=== PATIENT | female | born 1940 | race Caucasian/White ===

== ENCOUNTER 2020-05-08 09:38 | Outpatient (REF) | payer MEDICARE, MEDICAID, SELFPAY ==
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
--- NOTE | 2020-05-09 12:20 | MHC.AU.P13 ---
Hearing Aid Evaluation- Binaural Date of Visit: 05/08/20 Automobile Body Repair Supervisor Used: Not Applicable Description of Hearing: Right ear - Moderate dropping to profound sensorineural hearing loss with 76% speech discrimination. Left ear - Moderat to moderately-severe sensorineural hearing loss with 60% speech understanding. Patient tested at [facility] office with binaural hearing aids recommended by Shelley Owens. Current Hearing Instrument Information: None Additional Information: Due to the significant hearing loss and difficulties understanding speech, binaural hearing aids are recommended as part of the remediation process. Due to patient's dexterity trouble related to fibromyalgia, custom rechargeable hearing aids are advised. Hearing Instrument Selection: Right Ear: Payroll Bookkeeper: LiquidText Model: Dustin 1600 Half Shell - R Battery Size: Rechargeable Color: [place] Left Ear: Payroll Bookkeeper: Linda Model: Dustin 1600 Half Shell - R Battery Size: Rechargeable Color: [place] Plan: Plan of Care for Hearing Instrument Fitting: Patient wishes to purchase hearing aids as prescribed Action Taken/Action Needed: Earmold Impressions Taken Hearing Fitting to be scheduled when materials arrive Comments: Medical clearance and audiogram in chart. Diagnosis Code(s): Primary Diagnosis: H90.3 Bilateral Sensorineural Hearing Loss Services Performed: Hearing Aid Evaluation Type: HAE B: Binaural 3rd Alliance Party Ear Impression (Quantity): 2 Signature: Provider: Sebas Contreras, CCC-A
== END 2020-05-08 09:39 | disposition home or self-care (01) ==
LOC: HO.HAP 09:38
PROVIDERS: PCP Pediatrics; Visit Provider Otolaryngology
DX: Z46.1 Encounter for fitting and adjustment of hearing aid (principal); H90.3 Sensorineural hearing loss, bilateral
CPT/HCPCS: 92591; V5275

== ENCOUNTER 2020-06-19 09:00 | Outpatient (REF) | payer MEDICARE, MEDICAID, SELFPAY ==
--- NOTE | 2020-06-19 11:51 | MHC.AU.ANH ---
Adult Audiological Evaluation Date of Visit: 06/19/20 Hydrographic Surveyor Used: Not Applicable Reason for Appointment: Audiologic evaluation prior to fitting hearing aids. Patient had brought in audiogram from 04/2019. Dr. Rosa provided medical clearance, but current audiogram is needed. Dione reports fluctuating changes in hearing, right ear greater than left, significant congestion, and increased intermittent tinnitus with brief pulsatile hushing/rushing sounds in the right ear. Previous Hearing Test Results: 04/2019 [facility] Right Ear - Moderate sensorineural hearing loss with 60% speech understanding Left Ear - Moderate to profound sensorineural hearing loss with 76% speech discrimination Ear History: Family History of Hearing Loss?: Yes: Father Bothersome Tinnitus/Ringing/Noises in Ears: Both Ears Blocked/Full Sensation in Ear(s): Both Ears Medical History: Medical History: Head Injury, Heart Problems, High Blood Pressure, Measles, Migraines, Tobacco Use, Fibromyalgia Allergies: Clindamycin, Amoxicillin, Metronidazole Medication List: Lopressor, Hydrochlorothiazide, Vitamin C (as needed), Vitamin D, Aspirin Hearing Instrument History- Right Ear: Project Crew Worker: Test.tv Model: Yesmail 1600 Half Shell - R Serial Number: [id number] Battery Size: Rechargeable Repair Warranty: 07/02/2023 Loss and Damage Warranty: 07/02/2023 Dispensed By: [facility] Date of Fittin06/19/2020 Hearing Instrument History- Left Ear: Project Crew Worker: Test.tv Model: Dustin 1600 Half Shell - R Serial Number: [id number] Battery Size: Rechargeable Warranty: 07/02/2023 Loss and Damage Warranty: 07/02/2023 Dispensed By: [facility] Date of Fittin06/19/2020 Otoscopy: Right Ear: Small abrasions in leni & helix related to Dione scratching ear often Left Ear: Unremarkable Tympanometry: Tympanometry performed due to: Patient reports sensation that ears are blocked/plugged. Right Ear: Negative Middle Ear Pressure (Type C) Left Ear: Normal Middle Ear System (Type A) Hearing Evaluation: Transducer(s) Used: Insert Earphones Bone Conduction Method: Conventional Audiometry Stimuli Used: Pure Tones Right Ear: Description of Hearing: Moderately-severe to profound sensorineural hearing loss Left Ear: Description of Hearing: Moderate to severe sensorineural hearing loss Speech Recognition Threshold (SRT): Method Used: Monitored Live Voice Stimuli Used: Spondee Words Right Ear: 60 dB HL Left Ear: 55 dB HL Word Discrimination: Method: Recorded Lists Word Lists Used: NU-6 Right Ear: 76% at 90 dB HL Left Ear: 80% at 85 dB HL Most Comfortable Level (MCL): Right Ear: 90 dB HL Left Ear: 85 dB HL Comparison: Compared to the most recent evaluation: Thresholds have decreased bilaterally. Middle ear dysfunction persists in the right ear. Recommendations: - Advise returning to Dr Rosa regarding the increased ear symptoms. - Discussed using hydrocortizone cream on the outer ear to relieve the significant itchy feeling she often experiences. - Binaural in-the-ear rechargeable hearing aids were fit today. Hearing Aid follow-up is scheduled for 07/08/2020 - Audiological re-evaluation in one year. Will send a reminder card. Diagnosis: Primary Diagnosis: H90.3 Bilateral Sensorineural Hearing Loss Secondary Diagnosis: H69.91 Unspecified Eustachian Tube Dysfunction, Right Ear Signature: Provider: Sebas Contreras, [facility]
== END 2020-06-19 09:01 | disposition home or self-care (01) ==
LOC: HO.HAP 09:00
PROVIDERS: Visit Provider Otolaryngology
DX: Z46.1 Encounter for fitting and adjustment of hearing aid (principal); H90.3 Sensorineural hearing loss, bilateral; H69.91 Unspecified Eustachian tube disorder, right ear
CPT/HCPCS: 92595; V5011; V5020; V5160; V5260

== ENCOUNTER 2020-07-18 12:24 | Outpatient (REF) | payer MEDICARE, MEDICAID, SELFPAY | END 2020-07-18 12:25 | disposition home or self-care (01) | LOC: HO.HAP 12:24 | PROVIDERS: Visit Provider Pediatrics | DX: Z13.89 Encounter for screening for other disorder (principal) ==

== ENCOUNTER 2023-01-07 21:15 | Emergency (ER) | payer MEDICARE, MEDICAID, SELFPAY ==
--- NOTE | 2023-01-07 | ECG_ITS ---
Test Reason : AMS Blood Pressure : / mmHG Vent. Rate : 102 BPM Atrial Rate : 102 BPM P-R Int : 152 ms QRS Dur : 132 ms QT Int : 380 ms P-R-T Axes : 073 -73 063 degrees QTc Int : 495 ms Sinus tachycardia Right bundle branch block Left anterior fascicular block Bifascicular block Abnormal ECG No previous ECGs available Referred By: Generic ED Physician Electronically Signed By:DENNYS TRACY MD
--- NOTE | ~2023-01-07 | CT_ITS ---
EXAMINATION: CT HEAD WITHOUT CONTRAST CLINICAL INFORMATION: Altered mental status. COMPARISON: None available. TECHNIQUE: Contiguous axial imaging was performed from the skull base to vertex without intravenous administration of contrast. This CT examination was performed using dose optimization techniques as appropriate, variously including the following: *Automated exposure control *Adjustment of mA and/or kV according to patient size (this includes techniques or standardized protocols for targeted exams where dose is matched to indication/reason for exam; i.e. extremities or head) *Use of iterative reconstruction technique DLP: 697 mGy-cm FINDINGS: There is mild cerebral volume loss with prominence of the lateral, third and the fourth ventricles. The cortical sulci are widened appropriately. The fourth ventricle and basal cisterns are normally outlined. There is mild to moderate bilateral periventricular and central white matter diminished attenuation. There is no acute territorial defect, hemorrhage or midline shift. The extra-axial spaces are unremarkable. There is no acute territorial defect, hemorrhage or midline shift. The extra-axial spaces are unremarkable. Calvarium: Intact. Maxillofacial sinuses and mastoids: There is a sphenoid sinus opacity. The remaining visualized maxillofacial sinuses and mastoids are clear. CT/CT head/brain wo IV con IMPRESSION: Mild cerebral volume loss and [id number] bilateral periventricular and central white matter diminished attenuation which is nonspecific but likely to represent microvascular disease. There is no acute intracranial abnormality. Sphenoid sinus opacity of uncertain acuity and current significance.
--- NOTE | ~2023-01-07 | XR_ITS ---
EXAMINATION: XR CHEST CLINICAL INFORMATION: Altered mental status COMPARISON: None available. TECHNIQUE: Frontal view of the chest was obtained. FINDINGS: Mild basilar opacities may be small areas of atelectasis or developing infiltrate. The mid-upper lung zones are grossly clear. There has been a median sternotomy. No failure is seen here. The cardiac silhouette is within normal limits. No effusion. XR/XR chest 1V IMPRESSION: No films to compare. Mild bilateral basilar opacities may be areas of atelectasis or infiltrate versus chronic change. Follow-up films recommended to continue assessment. There is no failure or effusion.
[2023-01-07 21:22] VITALS: BP 89/44; PULSE 107; RESP 16; TEMP 36.6; O2SAT 98; BMI 23.1
[2023-01-07 21:47] LABS: MANUAL DIFF FLAG NO
[2023-01-07 21:49] LABS: Basophils Absolute Auto 0.1 X10*3/uL (0.0-0.2); Basophils Percent Auto 0.4 % (0-2); Eosinophils Absolute Auto 0.1 X10*3/uL (0.0-0.4); Eosinophils Percent Auto 1.1 % (0-4); Hematocrit 27.4 % (37.0-47.0); Hemoglobin 8.9 g/dl (12.0-16.0); Imm Gran Abs Auto 0.52 X10*3/uL (0.00-0.03); Imm Gran Pct Auto 4.5 % (0.0-0.4); Lymphocytes Absolute Auto 2.9 X10*3/uL (1.2-4.9); Lymphocytes Percent Auto 24.6 % (20-40); Mean Corpuscular HGB Conc 32.5 g/dl (31.0-35.0); Mean Corpuscular Hemoglobin 28.7 pg (27.0-33.0); Mean Corpuscular Volume 88.4 fL (80.0-98.0); Monocytes Absolute Auto 1.2 X10*3/uL (0.1-1.2); Monocytes Percent Auto 10.3 % (2-11); NRBC Pct Auto 0.3 /100WBC (0.0-0.2); Neutrophils Absolute Auto 6.9 x10*3/uL (2.0-8.3); Neutrophils Percent Auto 59.1 % (45-73); Platelet Count 321 X10*3/uL (160-400); Red Cell Distribution Width 14.3 % (11.0-16.0); White Blood Count 11.6 X10*3/uL (4.8-10.8)
[2023-01-07 21:50] LABS: Glucose, Whole Blood 134 mg/dL (60-115)
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
--- OUTSIDE RECORDS SUMMARY | 2023-01-07 21:50 | XMS_ITS | Continuity of Care Document ---
Author Name Unknown Organization [facility] Jozef dary Address [address] [address]- Care Team Providers Care Flame Gouger Name Role Phone Pepe THOMAS, Adan Primary Care Physician [phone] Encounter [facility] [place] [place] Date(s[place] 08/15/19 - 08/22/19 [facility] [address] [place] [address]- [facility] Attending Physician: Monico Gunter MD Referring Physician: Chantell Adams MD Allergies, Adverse Reactions, Alerts Substance Reaction Severity Status clindamycin Active amoxicillin Active metroNIDAZOLE Active Medications CPAP Equipment See Instructions, # 1 each, Maintenance, TO BHIRS: S9 AUTO @6-16 CM H2O, RAMP AND EPR PRN, W HUMIDIFIER, DATA CARD; [employer]O FX, MED OR PT PREF. DX [place], 327.23, AHI 6.0, HOME STUDY, 10/27/11; 99MOS, 11/18/11 15:40:06 Start Date: 11/18/11 Status: Ordered diphenhydramine 25 mg oral capsule 1 capsule = 25 mg, By Mouth, 3 times a day, PRN for allergy symptoms, (Diphenhydromine Hydrochloride), # 30 capsule, 0 Refills, Maintenance, Capsule Start Date: 10/19/11 Status: Ordered guaifenesin 400 mg oral tablet 1 tablet = 400 mg, By Mouth, Every 4 hours, PRN for congestion, Expectorant for chest congestion, #30 tablet, 0 Refills, Maintenance, Tablet Start Date: 10/19/11 Status: Ordered phenylephrine 10 mg oral tablet 1 tablet = 10 mg, By Mouth, Every 4 hours, PRN for congestion, Nasal decongestant, # 18 tablet, 0 Refills, Maintenance, Tablet Start Date: 10/19/11 Status: Ordered Vitamin C 250 mg oral tablet 1 tablet = 250 mg, By Mouth, Daily, PRN Other, When diet is low in vitamin C, # 30 tablet, 0 Refills, Maintenance, Tablet Start Date: 09/28/11 Status: Ordered Vitamin D3 1000 intl units oral capsule 1 capsule = 1,000 International_Units, By Mouth, Daily, # 100 capsule, 0 Refills, Maintenance, Capsule Start Date: 09/28/11 Status: Ordered Problem List Condition Effective Dates Status Health Status Inform ant Anxiety disorder(Confirmed) Active Dyspnea on exertion(Confirmed) Active Excessive daytime sleepiness - normal night sleep(Confirmed) Active Fibromyalgia(Confirmed) Active GERD - Gastro-esophageal ref lux disease(Confirmed) Active Insomnia(Confirmed) Active Mallampati class 4(Confirmed) Active Obesity(Confirmed) Active Snoring(Confirmed) Active
--- OUTSIDE RECORDS SUMMARY | 2023-01-07 21:50 | XMS_ITS | Continuity of Care Document ---
Author Name Unknown Organization [facility] d[facility] Address [address] [address]- Care Team Providers Care Trade Embalmer Name Role Phone Adan Cantu MD Primary Care Physician Encounter [facility] [place] Date(s): 11/14/19 - 12/14/19 [facility] [address] [place] [address]- [facility] Allergies, Adverse Reactions, Alerts Substance Reaction Severity [...] 8:40:00 EDT, Route to Pharmacy Electronically, [facility], 167, cm, 10/26/19 4:37:00 EDT, [...] Refills, Maintenance, 10/25/19 13:04:00 EDT, Tablet, [facility], 167, cm, 10/25/19 12:27:00 EDT, Height, [...]
--- OUTSIDE RECORDS SUMMARY | 2023-01-07 21:50 | XMS_ITS | Continuity of Care Document ---
Author Name Unknown Organization [facility] Address [address] [address]- Care Team Providers Care Ground Source Heat Pump Technician Name Role Phone Pepe THOMAS, Adan Primary Care Physician [phone] Encounter [facility] [place] Date(s): 09/04/19 - 09/11/19 [facility] [address] [place] [address]- [facility] Attending Physician: Monico Gunter MD Referring Physician: Chantell Adams MD Allergies, Adverse Reactions, Alerts Substance Reaction Severity Status clindamycin Active amoxicillin Active metroNIDAZOLE Active Medications CPAP Equipment See Instructions, # 1 each, Maintenance, TO BHIRS: S9 AUTO @6-16 CM H2O, RAMP AND EPR PRN, W HUMIDIFIER, DATA CARD; [employer]ATTRO FX, MED OR PT PREF. DX [place], [...]
--- OUTSIDE RECORDS SUMMARY | 2023-01-07 21:50 | XMS_ITS | Continuity of Care Document ---
Author Name Unknown Organization [facility] Jozef d[facility] Address [address] [place] [address]- Care Team Providers Care Soaker Name Role Phone Adan Cantu MD Primary Care Physician [place] [facility] [place] Date(s): 11/14/19 - 11/21/19 [facility] Cardiac Surgery [address] [place] [address]- [facility] Attending Physician: Jani THOMAS, Monico Cortez [...] 10/26/19 8:40:00 EDT, Route to Pharmacy Electronically, [facility], 167, cm, 10/26/19 4:37:00 [...] 0 Refills, Maintenance, 10/25/19 13:04:00 EDT, Tablet, [facility], 167, cm, 10/25/19 12:27:00 EDT, Height, [...]
--- OUTSIDE RECORDS SUMMARY | 2023-01-07 21:50 | XMS_ITS | Continuity of Care Document ---
Author Name Unknown Organization [facility] Card[facility] Jozef dary Address [address] [place] [address]- Care Team Providers Care Hoop Maker Machine Name Role Phone Adan Cantu MD Primary Care Physician [phone] Encounter [facility] [place] Date(s): 10/27/19 - 11/26/19 [facility] Cardiac Surgery [address] [place] [address]- [facility] Allergies, Adverse Reactions, Alerts Substance Reaction Severity [...] 10/26/19 8:40:00 EDT, Route to Pharmacy Electronically, [facility], 167, cm, 10/26/19 4:37:00 EDT, [...] 0 Refills, Maintenance, 10/25/19 13:04:00 EDT, Tablet, [facility] 3, 167, cm, 10/25/19 12:27:00 EDT, [...]
--- OUTSIDE RECORDS SUMMARY | 2023-01-07 21:50 | XMS_ITS | Continuity of Care Document ---
Author Name Unknown Organization [facility] Jozef d[facility] Address [address] [address]- Care Team Providers Care Mold Puller Name Role Phone Adan Cantu MD Primary Care Physician Encounter [facility] [place] Date(s): 09/12/19 - 10/12/19 [facility] Cardiac Surgery [address] [place] [address]- [facility] Allergies, Adverse Reactions, Alerts Substance Reaction Severity Status clindamycin Active amoxicillin Active Betadine Active metroNIDAZOLE Active Medications CPAP Equipment See Instructions, # 1 each, Maintenance, TO BHIRS: S9 AUTO @6-16 CM H2O, RAMP AND EPR PRN, W HUMIDIFIER, DATA CARD; [employer] QUATTRO FX, MED OR PT PREF. DX [place], 327.23, AHI 6.0, HOME STUDY, 10/27/11; 99MOS, 11/18/11 15:40:06 Start Date: 11/18/11 Status: Ordered hydrochlorothiazide 25 mg oral tablet 25 mg, 1, tablet, By Mouth, Daily, # 30 tablet, Refills 0, Maintenance, 09/20/19 13:14:00 EDT Start Date: 09/20/19 Status: Ordered Vitamin C 250 mg oral [...]
--- OUTSIDE RECORDS SUMMARY | 2023-01-07 21:50 | XMS_ITS | Continuity of Care Document ---
Author Name Unknown Organization [facility] Jozef d[facility] Address [address] [place] [address]- Care Team Providers Care Curtain Drier Name Role Phone Adan Cantu MD Primary Care Physician [place] [facility] [place] 11/15/19 - 12/15/19 [facility] Cardiac Surgery [address] [place] [address]- [facility] Attending Physician: Admtr, Ar8 Admitting Physician: Admtr, Ar8 Referring Physician: Admtr, Ar8 Allergies, Adverse Reactions, Alerts Substance Reaction Severity Status clindamycin Active amoxicillin Active metroNIDAZOLE Active Betadine Active Adhesive Bandage Active Medications aspirin 81 mg oral delayed [...] 10/26/19 8:40:00 EDT, Route to Pharmacy Electronically, [facility], 167, cm, 10/26/19 4:37:00 [...] 0 Refills, Maintenance, 10/25/19 13:04:00 EDT, Tablet, [facility], 167, cm, 10/25/19 12:27:00 EDT, Height, [...] Obesity(Confirmed) Active OA (osteoarthritis)(Confirmed) Active Snoring(Confirmed) Active Vital Signs Most recent to oldest [Reference Range]: 1 Height 170.18 cm (09/04/19 1:54 PM) Oxygen Saturation [94-100 %] 96 % (09/04/19 1:54 PM) Pulse Rate [55-90 bpm] 75 bpm (09/04/19 1:54 PM) Blood Pressure [90-138/55-84 mm Hg] 130/ 84mm Hg (09/04/19 1:54 PM) Respiratory Rate [16-30 br/min] 18 br/mi n (09/04/19 1:54 PM) Mode of Delivery (Oxygen) Room air (09/04/19 1:54 PM)
--- OUTSIDE RECORDS SUMMARY | 2023-01-07 21:50 | XMS_ITS | Continuity of Care Document ---
Author Name Unknown Organization [facility] Cardiac Jozef dary Address [address] [address]- Care Team Providers Care Machined Parts Quality Inspector Name Role Phone Adan Cantu MD Primary Care Physician [phone] Encounter [facility] [place] Date(s): 09/21/19 - 10/21/19 [facility] Cardiac Surgery [address] [place] [address]- [facility] Allergies, Adverse Reactions, Alerts Substance Reaction Severity Status clindamycin Active amoxicillin Active Betadine Active Adhesive Bandage Active metroNIDAZOLE Active Medications CPAP Equipment See [...]
--- OUTSIDE RECORDS SUMMARY | 2023-01-07 21:50 | XMS_ITS | Continuity of Care Document ---
Author Name Unknown Organization [facility]ozef d[facility] Address [address] [address]- Care Team Providers Care Operations Research Analyst Name Role Phone Adan Cantu MD Primary Care Physician En[place] [facility] [place] [id number] Date(s): 11/15/19 - 11/22/19 [facility] Card[facility] [address] [address] [facility] Attending Physician: Monico Gunter MD Referring Physician: Adan Cantu MD Allergies, Adverse Reactions, Alerts Substance Reaction [...] 10/26/19 8:40:00 EDT, Route to Pharmacy Electronically, [facility], 167, cm, 10/26/19 4:37:00 [...] 0 Refills, Maintenance, 10/25/19 13:04:00 EDT, Tablet, [facility], 167, cm, 10/25/19 12:27:00 EDT, Height, [...]
--- OUTSIDE RECORDS SUMMARY | 2023-01-07 21:50 | XMS_ITS | Continuity of Care Document ---
Author Name Unknown Organization [facility] Cardiac Jozef d[facility] Address [address] [address]- Care Team Providers Care Hadoop Administrator Name Role Phone Adan Cantu MD Primary Care Physician [place] [facility] [place](s): 09/12/19 - 10/12/19 [facility] Card[facility] Surgery [address] [place] [address]- [facility] Allergies, Adverse Reactions, Alerts Substance Reaction Severity Status clindamycin Active amoxicillin Active Betadine Active metroNIDAZOLE Active Medications CPAP Equipment See Instructions, # 1 each, Maintenance, TO BHIRS: S9 AUTO @6-16 CM H2O, RAMP AND EPR PRN, W HUMIDIFIER, DATA CARD; [employer] QUATTRO FX, MED OR PT PREF. DX [...]
--- OUTSIDE RECORDS SUMMARY | 2023-01-07 21:50 | XMS_ITS | Continuity of Care Document ---
Author Name Unknown Organization [facility] ter Address [address] [place] [address]- Care Team Providers Care Janitor Cleaner Name Role Phone Adan Cantu MD Primary Care Physician [place] [facility] [place] 10/18/19 - 10/26/[address] [address]- [facility] Discharge Disposition: A-D/C Home Attending Physician: Monico Gunter MD Admitting Physician: Monico Gunter MD Referring Physician: Bryan THOMAS, Chantell Allergies, Adverse Reactions, Alerts Substance Reaction Severity [...] tablet 25 mg, 1, tablet, By Mouth, Every 8 hours, # 90 tablet, Refills 0, Tot. Refills 0, Maintenance, 10/26/19 8:40:00 EDT, Route to Pharmacy Electronically, [facility], 167, cm, 10/26/19 4:37:00 [...] Date: 10/25/19 Stop Date: 11/22/19 Status: Ordered Vitamin C 250 mg oral [...] Maintenance, Capsule Start Date: 09/28/11 Status: Ordered Zofran 4 mg oral tablet 1 tablet = 4 mg, By Mouth, Every 8 hours, PRN as needed for nausea/vomiting, # 21 tablet, 0 Refills, Maintenance, 10/25/19 13:04:00 EDT, Tablet, [facility], 167, cm, 10/25/19 12:27:00 [...] Obesity(Confirmed) Active OA (osteoarthritis)(Confirmed) Active Snoring(Confirmed) Active Results Radiology Reports * Exam Date Time Procedure Performing Provider Status 10/19/19 5:57 AM Chest Portable Twila Chamberlain; Richie (Verified) Notes: (Chest Portable) Reason For Exam: S/P Cardiac Surgery RESULT: Chest Portable Chest Portable AP upright 5:10 AM INDICATION: S/p cardiac surgery COMPARISON: 10/18/2019. FINDINGS: LINES AND TUBES: Right IJ Chandler-Angelica catheter tip overlies the pulmonary outflow tract. Interval removal of the endotracheal tube and enteric tube. LUNGS AND PLEURA: Mild bibasilar atelectasis. Small bilateral pleural effusions. Slightly decreased pulmonary vascularity and interstitial markings. No pneumothorax. HEART, MEDIASTINUM AND TIFFANY: Unchanged. Aortic valve prosthesis in place. BONES AND SOFT TISSUES: Median sternotomy wires are intact. IMPRESSION: 1. Improved vascular congestion and interstitial edema. Small bilateral pleural effusions with bibasilar atelectasis. 2. Interval removal the endotracheal and enteric tubes. Chandler-Angelica catheter is unchanged. I have personally reviewed the images and I agree with this report. WSN: [id number] Ordering Physician: Vishnu Valdez Dictated By: Leesa Collins MD Dictated Date/Time: 10/19/19 8:49 am Reviewed By: Bobo Santa MD Signed By: Bobo Santa MD Signed Date/Time: 10/19/19 8:54 am Transcribed By: YOKASTA Transcribed Date/Time: 10/19/19 8:43 am * Exam Date Time Procedure Performing Provider Status 10/18/19 3:25 PM Chest Portable Wendi Martinez; Richie (Verified) Notes: (Chest Portable) Reason For Exam: S/P Cardiac Surgery RESULT: Chest Portable Chest Portable Reason: S P Cardiac Surgery; Clinical Question(s): Other:; Cardiac Tamponade; Special Instructions:On Admission to [facility] COMPARISON: . FINDINGS: LINES AND TUBES: Endotracheal tube is at least 2 cm above the mikael. Right IJ Chandler-Angelica catheter. Enteric tube that extends below the bottom of the image but seen at least below the diaphragm. Mediastinal tube. LUNGS AND PLEURA: Low lung volumes with mild basilar atelectasis. Increased interstitial opacities, suggesting pulmonary edema. Lungs are otherwise clear with no consolidation. No pleural effusion. No pneumothorax. HEART, MEDIASTINUM AND TIFFANY: Heart is normal in size. New aortic valve. Intact sternal wires. BONES AND SOFT TISSUES: No acute abnormality. IMPRESSION: Low lung volumes with basilar atelectasis. Increased interstitial markings, possibly pulmonary edema. WSN: [id number] Ordering Physician: Kirk Irving Dictated By: Niall Mckinney MD Dictated Date/Time: 10/18/19 3:56 pm Reviewed By: Niall Mckinney MD Signed By: Niall Mckinney MD Signed Date/Time: 10/18/19 3:56 pm Transcribed By: YOKASTA Transcribed Date/Time: 10/18/19 3:52 pm Vital Signs Most recent to oldest [Reference Range]: 1 2 3 Height 167 cm (10/26/19 8:49 AM) 167 cm (10/26/19 4:37 AM) 167 cm (10/26/19 4:34 AM) Weight 111.9 kg (10/26/19 4:46 AM) 112.4 kg (10/25/19 4:50 AM) 116.4 kg (10/24/19 6:04 AM) Oxygen Saturation [94-100 %] 99 % (10/26/19 8:49 AM) 100 % (10/26/19 4:32 AM) 97 % (10/25/19 8:06 PM) Pulse Rate [55-90 bpm] 67 bpm (10/26/19 8:49 AM) 84 bpm (10/26/19 4:32 AM) 65 bpm (10/25/19 9:52 PM) Body Mass Index [18.5-24.99] 41.77 *>HHI* (10/20/19 5:55 AM) 41.77 *>HHI* (10/20/19 2:24 AM) 38.04 *>HHI* (10/18/19 7:06 AM) Blood Pressure [90-138/55-84 mm Hg] 146/74mm Hg *H* (10/26/19 8:49 AM) 159/70mm Hg *H* (10/26/19 4:37 AM) 141/70mm Hg *H* (10/25/19 9:52 PM) Respiratory Rate [16-30 br/min] 18 br/min (10/26/19 8:49 AM) 18 br/min (10/26/19 5:45 AM) 18 br/min (10/26/19 4:32 AM) Temperature [96.8-100.4 DegF] 98.3 DegF (10/26/19 8:49 AM) 97.8 DegF (10/26/19 4:34 AM) 98.2 DegF (10/25/19 8:06 PM) Liters per Minute 2 L/min (10/21/19 8:23 AM) 2 L/min (10/21/19 5:53 AM) 2.5 L/min (10/20/19 4:41 PM) Mode of Delivery (Oxygen) Room air (10/26/19 8:49 AM) Room air (10/26/19 4:32 AM) Room air (10/25/19 8:06 PM) Blood pressure sites Arm, left (10/26/19 8:49 AM) Arm, right (10/26/19 4:37 AM) Arm, left (10/25/19 8:08 PM) Temperature Route Oral (10/26/19 8:49 AM) Oral (10/26/19 4:34 AM) Oral (10/25/19 8:06 PM) Dry Weight 106.1 kg (10/18/19 7:06 AM) Weight Obtained Via Standing scale (10/26/19 4:46 AM) Standing scale (10/25/19 4:50 AM) Bed scale (10/23/19 6:00 AM)
--- OUTSIDE RECORDS SUMMARY | 2023-01-07 21:50 | XMS_ITS | Continuity of Care Document ---
Author Name Unknown Organization [facility] Address [address] [address]- Care Team Providers Care Dish Up Person Name Role Phone Adan Cantu MD Primary Care Physician Encounter [facility] [place] Date(s): 09/26/19 - 10/26/19 [facility] 759 [facility] Room [address] [place] [id number]- [facility] Allergies, Adverse Reactions, Alerts Substance [...] 10/25/19 13:04:00 EDT, Tablet, [facility], 167, cm, 10/25/19 12:27:00 [...]
--- OUTSIDE RECORDS SUMMARY | 2023-01-07 21:50 | XMS_ITS | Continuity of Care Document ---
Author Name Unknown Organization [facility] ter Address [address] [place] [address]- Care Team Providers Care Vp Information Technology Name Role Phone Pepe THOMAS, Adan Primary Care Physician Encounter [facility] [place] Date(s): 09/18/19 - 11/10/[address] [address]- [facility] Attending Physician: Monico Gunter MD Referring Physician: Bryan THOMAS, Chantell Allergies, Adverse Reactions, Alerts Substance Reaction Severity Status clindamycin Active amoxicillin Active Betadine Active metroNIDAZOLE Active Adhesive Bandage Active Medications aspirin 81 [...] 8:40:00 EDT, Route to Pharmacy Electronically, [facility], 167, cm, 10/26/19 4:37:00 [...] Refills, Maintenance, 10/25/19 13:04:00 EDT, Tablet, [facility], 167, cm, 10/25/19 12:27:00 EDT, [...]
--- OUTSIDE RECORDS SUMMARY | 2023-01-07 21:50 | XMS_ITS | Continuity of Care Document ---
Author Name Unknown Organization [facility] Address [address] [address]- Care Team Providers Care Engineering Technology Instructor Name Role Phone Adan Cantu MD Primary Care Physician [phone] Encounter [facility] [place] R [id number] Date(s): 02/16/20 - 02/23/20 [facility] 759 [facility] Room [address] [place] [id number] Attending Physician: Jani THOMAS, Monico Cortez Referring [...] 10/26/19 8:40:00 EDT, Route to Pharmacy Electronically, [facility], 167, cm, 10/26/19 4:37:00 [...] 0 Refills, Maintenance, 10/25/19 13:04:00 EDT, Tablet, [facility], 167, cm, 10/25/19 12:27:00 EDT, [...]
--- OUTSIDE RECORDS SUMMARY | 2023-01-07 21:51 | XMS_ITS | Continuity of Care Document ---
Author Name Unknown Organization [facility] Address [address] [address]- Care Team Providers Care Ground Crew Lines Person Name Role Phone Adan Cantu MD Primary Care Physician Encounter [facility] [place] Date(s): 10/30/19 - 11/29/19 [facility] Cardiac Surgery 759 [facility] Room [address] [place] [address]- [facility] Allergies, Adverse Reactions, Alerts Substance Reaction Severity [...] 10/26/19 8:40:00 EDT, Route to Pharmacy Electronically, [facility], 167, cm, 10/26/19 4:37:00 [...] 0 Refills, Maintenance, 10/25/19 13:04:00 EDT, Tablet, [facility], 167, cm, 10/25/19 12:27:00 EDT, Height, [...]
--- OUTSIDE RECORDS SUMMARY | 2023-01-07 21:51 | XMS_ITS | Continuity of Care Document ---
Author Name Unknown Organization [facility] Address [address] [address]- Care Team Providers Care Deck Mechanic Name Role Phone Adan Cantu MD Primary Care Physician [phone] Encounter [facility] [place] Date(s): 10/03/19 - 11/02/19 [facility] Cardiac Surgery [address] [address]- [facility] Allergies, Adverse Reactions, Alerts Substance Reaction Severity Status clindamycin Active amoxicillin Active Betadine Active Adhesive Bandage Active metroNIDAZOLE Active Medications aspirin 81 mg oral delayed release tablet 1 tablet = 81 mg, By Mouth, Daily, # 30 tablet, 0 Refills, Maintenance, 10/23/19 7:52:00 EDT, EC Tablet Start Date: 10/23/19 Status: Ordered Colace sodium 100 mg oral capsule 100 mg, 1, capsule, By Mouth, 2 times a day, # 28 capsule, Refills 0, Tot. Refills 0, Maintenance, 10/30/19 13:20:00 EDT, Route to Pharmacy Electronically, [id number], 167, cm, 10/26/19 8:49:00 EDT, Height, 106.1, kg, 10/18/19 7:06:00... Start Date: 10/30/19 Stop Date: 11/13/19 Status: Ordered CPAP Equipment See Instructions, # [...] 10/26/19 8:40:00 EDT, Route to Pharmacy Electronically, [facility], 167, cm, 10/26/19 4:37:00 [...] Date: 10/25/19 Stop Date: 11/22/19 Status: Ordered Senna 8.6 mg oral tablet 1 or 2 tablets, By Mouth, Daily at bedtime, PRN, for 14 days, # 28 tablet, Refills 0, Tot. Refills 0, Acute, Constipation, 11/13/19 13:21:00 EDT, 10/30/19 13:21:00 EDT, Route to Pharmacy Electronically, [id number] Tablet, 167, cm, 08... Start Date: 10/30/19 Stop Date: 11/13/19 Status: Ordered Vitamin C 250 mg oral [...] 0 Refills, Maintenance, 10/25/19 13:04:00 EDT, Tablet, [facility], 167, cm, 10/25/19 12:27:00 [...]
--- OUTSIDE RECORDS SUMMARY | 2023-01-07 21:51 | XMS_ITS | Continuity of Care Document ---
Author Name Unknown Organization [facility] Address [address] [place] [address]- Care Team Providers Care Ship Propeller Finisher Name Role Phone Adan Cantu MD Primary Care Physician [phone] Encounter [facility] [place] Date(s): 02/16/20 - 03/17/20 [facility] Card[facility] [address] [place] [address]- Attending Physician: Admtr, Ar8 Admitting Physician: Admtr, [...] 10/26/19 8:40:00 EDT, Route to Pharmacy Electronically, [facility], 167, cm, 10/26/19 [...] 0 Refills, Maintenance, 10/25/19 13:04:00 EDT, Tablet, [facility], 167, cm, 10/25/19 12:27:00 [...]
--- OUTSIDE RECORDS SUMMARY | 2023-01-07 21:51 | XMS_ITS | Continuity of Care Document ---
Author Name Unknown Organization [facility] Address [address] [place] [address]- Care Team Providers Care Science Intern Name Role Phone Adan Cantu MD Primary Care Physician En[place] [facility] [place](s[place] 08/01/19 - 09/17/[address] [address] [phone] Attending Physician: Chantell Adams MD Admitting Physician: Chantell Adams MD Referring Physician: Chantell Adams MD Allergies, Adverse Reactions, Alerts Substance Reaction Severity Status clindamycin Active amoxicillin Active metroNIDAZOLE Active Medications CPAP Equipment See Instructions, # 1 each, Maintenance, TO BHIRS: S9 AUTO @6-16 CM H2O, RAMP AND EPR PRN, W HUMIDIFIER, DATA CARD; [employer], MED OR PT PREF. DX [place], [...]
--- OUTSIDE RECORDS SUMMARY | 2023-01-07 21:51 | XMS_ITS | Continuity of Care Document ---
Author Name Unknown Organization [facility] Address [address] [place] [address]- Care Team Providers Care Microbiology Lab Technician Name Role Phone Adan Cantu MD Primary Care Physician [phone] [place] [facility] [place]): [place]04[place] 10/04/19 [facility] Card[facility] [address] [place] [address]- [facility] Attending Physician: Admtr, Ar8 Admitting Physician: Admtr, Ar8 Referring Physician: Admtr, Ar8 Allergies, Adverse Reactions, Alerts Substance Reaction Severity Status clindamycin Active amoxicillin Active Betadine Active metroNIDAZOLE Active Medications CPAP Equipment See Instructions, # 1 each, Maintenance, TO BHIRS: S9 AUTO @6-16 CM H2O, RAMP AND EPR PRN, W HUMIDIFIER, DATA CARD; [employer], MED OR PT PREF. DX [place], [...]
[2023-01-07 22:04] LABS: Alanine Aminotransferase 12 U/L (0-31); Albumin Level 2.9 g/dL (3.5-5.0); Alkaline Phosphatase 251 U/L (39-117); Anion Gap 14 (12-20); Aspartate Amino Transferase 41 U/L (5-31); Bilirubin Direct 0.3 mg/dL (0.0-0.5); Bilirubin Total 0.6 mg/dL (0.0-1.0); Blood Urea Nitrogen 16 mg/dL (9-16); Calcium 10.9 mg/dL (8.4-10.2); Carbon Dioxide 27 mmol/L (22-29); Chloride 101 mmol/L (96-108); Creatinine Clr Calc Pharmacy 44.2; Estimated Glomerular Filt Rate 55; Glucose Random 136 mg/dL (60-115); Magnesium 1.9 mg/dL (1.6-2.6); Potassium 3.9 mmol/L (3.3-5.1); Sodium 138 mmol/L (135-145)
[2023-01-07 22:05] LABS: Venous Blood Gas Refer to POC result
[2023-01-07 22:05] LABS: VBG Base Excess 8.8 mmol/L; VBG HCO3 31 mmol/L (22-26); VBG pCO2 35 mmHg; VBG pH 7.55 (7.32-7.43); VBG pO2 39 mmHg
[2023-01-07 22:08] LABS: B Type Natriuretic Peptide 113 pg/mL (<100)
--- NOTE | 2023-01-07 23:08 | ED_ITS ---
HPI - Altered Mental Status General Chief Complaint: Altered Mental Status Stated Complaint: dementia Time Seen by Provider: 01/07/23 21:47 Source: EMS and other ( encounter summary progress note sent in with the patient) Mode of arrival: EMS Limitations: altered mental status History of Present Illness HPI narrative: 82-year-old female with history of chronic pain, fibromyalgia, failure to thrive, obstructive sleep apnea, anxiety disorder, atrial fibrillation, hypertension, rhabdomyolysis, cognitive dysfunction who was sent to the emergency department for evaluation of hypoxia and altered mental status. Following was obtained from transfer note dated by Bharti Talamantes MD dated 01/07/2023: I am asked to see this 82-year-old woman because of AMS and hypoxia. [employer] is noticed little while ago that she was not acting her usual self ( which is odd at baseline). On nursing evaluation her O2 sat was in the 70s while lying flat. She sat up a little and a few minutes later saturation came up to 99%. When I go to see her she is lying curled on her side. A response to questions is slow and she periodically freezes and open mouth staring position. She denied pain. She starts telling me something about her heart and then stops in the middle when I wean over to hear her better she says stop pushing me. I tell her that I am not touching her. She does not look convinced. patient's med list was reviewed by me and she is taking Remeron ,baclofen, hydrochlorothiazide Lidoderm patches, ondansetron and acetaminophen. there are no prescribing narcotic medications. Related Data Allergies Allergy/AdvReac Type Severity Reaction Status Date / Time No Known Allergies Allergy Verified 01/07/23 21:22 Review of Systems 2 Review of Systems: Yes all other systems are reviewed and are negative [facility], [facility] Past Medical History Attestation statement: The following information was validated with the patient. [facility], [facility] Narrative: social history: Patient is at [facility] Social History Social History Unable to assess alcohol history related to: Unable to respond Use of substances other than those prescribed or required for medical reasons: Unable to respond Advance Directives: No Advance Directives Information Provided: No Physical Exam ED Vital Signs: Vital Signs - 24 hr 01/07/23 21:22 01/08/23 00:00 01/08/23 02:00 Temperature 98 F Pulse Rate 107 H 95 Respiratory Rate 16 20 16 Blood Pressure 89/44 L 95/61 Pulse Oximetry 98 99 Oxygen Delivery Method Room Air Room Air Room Air 01/08/23 04:00 01/08/23 05:59 01/08/23 07:04 Temperature Pulse Rate 102 H 105 H 106 H Respiratory Rate 20 20 15 Blood Pressure 89/50 L 96/51 L 93/64 Pulse Oximetry 97 98 100 Oxygen Delivery Method Room Air Room Air Room Air BMI result Body Mass Index 23.1 vital signs revealed a low blood pressure of 89/44 and O2 saturation of 98% on room air exam: General: Patient is staring off into space, she is holding her arms up, she initially did not respond verbally but then did tell me her name, she spelled out her 1st and last name, she then began crying and told me that she wants to go home. Head: Normocephalic, atraumatic EENT: Pupils are 3 mm, reactive, Lids normal, sclera normal, conjunctiva normal, nose normal , ears normal, throat without erythema or exudates Neck: Supple, no adenopathy, no trachea midline or C-spine tenderness Lung: breath sounds symmetric, no wheezing, rales or rhonchi Chest: symmetric movement, nontender Heart: regular rate and rhythm, normal S1, S2 no murmurs or rubs Abdomen: soft, non-tender, nondistended, normal bowel sounds rectal: hard brown stool, Hemoccult negative Back: no vertebral tenderness, no CVAT Extremities: no deformities, moves all extremities symmetrically Skin: no rashes, no lesion, normal color and warmth Neuro: Awake, oriented to person, normal speech, cranial nerves intact, moves all extremities symmetrically Psych: odd affect, patient speaks, the pauses, she hold her arms up and freezes and position and then moves again Medications Administered Discontinued Medications Generic Name Dose Route Start Last Admin Trade Name Freq PRN Reason Stop Dose Admin Haloperidol Lactate 2.5 mg 01/08/23 00:20 01/08/23 00:25 Haloperidol Lactate 5 Mg/Ml Vial IVPUSH 01/08/23 00:21 2.5 mg ONCE ONE Administration Lorazepam 0.5 mg 01/08/23 00:20 01/08/23 00:26 Lorazepam 2 Mg/Ml Vial IVPUSH 11/03/23 00:21 0.5 mg STAT STA Administration Medical Decision Making Medical Decision Making [facility] Narrative: 82-year-old female with history of chronic pain, fibromyalgia, failure to thrive, obstructive sleep apnea, anxiety disorder, atrial fibrillation, hypertension, rhabdomyolysis, cognitive dysfunction who was sent to the emergency department for evaluation of hypoxia and altered mental status. patient's vital signs did reveal low blood pressure but normal O2 saturation on room air. Patient does have a very odd affect, pupils were 3 mm and reactive, exam was otherwise unremarkable. I ordered the following laboratory evaluation: CBC, BMP, liver panel, BNP, magnesium, urinalysis obtained by straight catheterization, venous blood gas, urine drug screen, ethanol level, occult stool, CT scan of the brain, chest x-ray, EKG. 23:37 patient's laboratory evaluation did reveal anemia compared to her baseline but she had a normal MCV. Rectal exam revealed haed brown stool which was Hemoccult negative. Chest x-ray was unremarkable. Twelve EKG revealed a tachycardia but no acute findings. 07:55 The patient did require sedation with Haldol 2.5 mg IV and Ativan 0.5 mg IV in order to complete her evaluation. Patient's laboratory evaluation was unremarkable and did not reveal a cause for her altered mental status. Urinalysis was negative for infection, urine tox screen was negative and at the level was below detectable limits. CT scan of the brain did not reveal any acute findings and are consistent with chronic Ischemic changes consistent with her age. At this time I do not have a clear etiology for her altered behavior, this may be psychiatric. Patient will be discharged back to her care facility. Differential Diagnosis Differential Diagnoses: The differential diagnosis associated with the presentation includes Differential diagnosis includes was not limited to stroke, cerebral bleed, pneumonia, electrolyte abnormality, anemia, encephalopathy, unintentional opiate exposure, intoxication Admission/Observation Consideration of admission/observation: Escalation of care including admission/observation considered Lab Data [facility] Lab Attestation statement: I reviewed the patient's lab results. My independent interpretation patient's laboratory evaluation as follows: WBC elevated 11,600, anemia with an H&H of 8.9 and 27.4 compared to an H&H of 14 and 43 dated 06/22/2022. The pH elevated 7.55 with a normal CO2 of 35. glucose was elevated 136. BNP slightly elevated 113. Straight cath urinalysis revealed trace leukocyte esterase, 3-5 WBCs, 0-5 RBCs, no bacteria- not consistent with infection. Hemoccult-negative. Ethanol level was below detectable limits, urine tox screen negative. 01/07/23 21:40 01/07/23 21:40 Labs: Lab Results 01/07/23 01/07/23 01/07/23 Range/Units 21:40 21:45 21:46 WBC 11.6 H (4.8-10.8) X10*3/uL RBC 3.10 L D (4.20-5.50) X10*6/uL Hgb 8.9 L D (12.0-16.0) g/dl Hct 27.4 L D (37.0-47.0) % MCV 88.4 (80.0-98.0) fL MCH 28.7 (27.0-33.0) pg MCHC 32.5 (31.0-35.0) g/dl RDW 14.3 (11.0-16.0) % Plt Count 321 (160-400) X10*3/uL MPV 9.0 L (9.4-12.3) fL Immature Gran % (Auto) 4.5 H (0.0-0.4) % Neut % (Auto) 59.1 (45-73) % Lymph % (Auto) 24.6 (20-40) % [place] % (Auto) 10.3 (2-11) % Eos % (Auto) 1.1 (0-4) % Baso % (Auto) 0.4 (0-2) % Lymph # (Auto) 2.9 (1.2-4.9) X10*3/uL [place] # (Auto) 1.2 (0.1-1.2) X10*3/uL Eos # (Auto) 0.1 (0.0-0.4) X10*3/uL Baso # (Auto) 0.1 (0.0-0.2) X10*3/uL Abs Immat Gran (auto) 0.52 H (0.00-0.03) X10*3/uL Absolute Neuts (auto) 6.9 (2.0-8.3) x10*3/uL Absolute Nucleated RBC 0.040 H (0.0-0.012) X10*3/uL Nucleated RBC % (auto) 0.3 H (0.0-0.2) /100WBC VBG pH 7.55 H (7.32-7.43) VBG pCO2 35 mmHg VBG pO2 39 mmHg VBG HCO3 31 H (22-26) mmol/L VBG O2 Saturation 62.0 % VBG Base Excess 8.8 mmol/L Sodium 138 (135-145) mmol/L Potassium 3.9 (3.3-5.1) mmol/L Chloride 101 (96-108) mmol/L Carbon Dioxide 27 (22-29) mmol/L Anion Gap 14 (12-20) BUN 16 (9-16) mg/dL Creatinine 0.97 (0.5-1.4) mg/dL Estim Creat Clear Calc 44.2 Estimated GFR 55 POC Glucose 134 H (60-115) mg/dL Random Glucose 136 H (60-115) mg/dL Calcium 10.9 H D (8.4-10.2) mg/dL Magnesium 1.9 (1.6-2.6) mg/dL Total Bilirubin 0.6 (0.0-1.0) mg/dL Direct Bilirubin 0.3 (0.0-0.5) mg/dL AST 41 H (5-31) U/L ALT 12 (0-31) U/L Alkaline Phosphatase 251 H (39-117) U/L Total Creatine Kinase 130 (26-140) U/L B-Natriuretic Peptide 113 H (<100) pg/mL Total Protein 7.0 (6.5-8.0) g/dL Albumin 2.9 L (3.5-5.0) g/dL Urine Color Urine Appearance Urine pH (5.0-9.0) Ur Specific [place] (1.005-1.025) Urine Protein (Neg-Trace) mg/dL Urine Glucose (UA) (Negative) mg/dL Urine Ketones (Negative) mg/dL Urine Blood (Negative) Urine Nitrite (Negative) Ur Leukocyte Esterase (Negative) Urine RBC (0-2) /HPF Urine WBC (0-5) /HPF Ur Squamous Epith Cells (0-2) /HPF Calcium Oxalate Crystal Urine Bacteria (None Seen) Hyaline Casts (0-2) /LPF Stool Occult Blood (NEGATIVE) Urine Opiates Screen (Not Detect) Urine Fentanyl Screen (Not Detect) Ur Barbiturates Screen (Not Detect) Ur Phencyclidine Scrn (Not Detect) Ur Amphetamines Screen (Not Detect) U Benzodiazepines Scrn (Not Detect) Urine Cocaine Screen (Not Detect) U Marijuana (THC) Screen (Not Detect) Ethyl Alcohol < 10 mg/dL 01/08/23 Range/Units 00:03 WBC (4.8-10.8) X10*3/uL RBC (4.20-5.50) X10*6/uL Hgb (12.0-16.0) g/dl Hct (37.0-47.0) % MCV (80.0-98.0) fL MCH (27.0-33.0) pg MCHC (31.0-35.0) g/dl RDW (11.0-16.0) % Plt Count (160-400) X10*3/uL MPV (9.4-12.3) fL Immature Gran % (Auto) (0.0-0.4) % Neut % (Auto) (45-73) % Lymph % (Auto) (20-40) % [place] % (Auto) (2-11) % Eos % (Auto) (0-4) % Baso % (Auto) (0-2) % Lymph # (Auto) (1.2-4.9) X10*3/uL [place] # (Auto) (0.1-1.2) X10*3/uL Eos # (Auto) (0.0-0.4) X10*3/uL Baso # (Auto) (0.0-0.2) X10*3/uL Abs Immat Gran (auto) (0.00-0.03) X10*3/uL Absolute Neuts (auto) (2.0-8.3) x10*3/uL Absolute Nucleated RBC (0.0-0.012) X10*3/uL Nucleated RBC % (auto) (0.0-0.2) /100WBC VBG pH (7.32-7.43) VBG pCO2 mmHg VBG pO2 mmHg VBG HCO3 (22-26) mmol/L VBG O2 Saturation % VBG Base Excess mmol/L Sodium (135-145) mmol/L Potassium (3.3-5.1) mmol/L Chloride (96-108) mmol/L Carbon Dioxide (22-29) mmol/L Anion Gap (12-20) BUN (9-16) mg/dL Creatinine (0.5-1.4) mg/dL Estim Creat Clear Calc Estimated GFR POC Glucose (60-115) mg/dL Random Glucose (60-115) mg/dL Calcium (8.4-10.2) mg/dL Magnesium (1.6-2.6) mg/dL Total Bilirubin (0.0-1.0) mg/dL Direct Bilirubin (0.0-0.5) mg/dL AST (5-31) U/L ALT (0-31) U/L Alkaline Phosphatase (39-117) U/L Total Creatine Kinase (26-140) U/L B-Natriuretic Peptide (<100) pg/mL Total Protein (6.5-8.0) g/dL Albumin (3.5-5.0) g/dL Urine Color Yellow Urine Appearance Cloudy Urine pH 6.5 (5.0-9.0) Ur Specific [place] 1.015 (1.005-1.025) Urine Protein 30 (1+) H (Neg-Trace) mg/dL Urine Glucose (UA) Negative (Negative) mg/dL Urine Ketones Negative (Negative) mg/dL Urine Blood Negative (Negative) Urine Nitrite Negative (Negative) Ur Leukocyte Esterase Trace H (Negative) Urine RBC 3-5 H (0-2) /HPF Urine WBC 0-5 (0-5) /HPF Ur Squamous Epith Cells 6-10 (0-2) /HPF Calcium Oxalate Crystal Present Urine Bacteria None Seen (None Seen) Hyaline Casts 11-20 (0-2) /LPF Stool Occult Blood NEGATIVE (NEGATIVE) Urine Opiates Screen Not Detected (Not Detect) Urine Fentanyl Screen Not Detected (Not Detect) Ur Barbiturates Screen Not Detected (Not Detect) Ur Phencyclidine Scrn Not Detected (Not Detect) Ur Amphetamines Screen Not Detected (Not Detect) U Benzodiazepines Scrn Not Detected (Not Detect) Urine Cocaine Screen Not Detected (Not Detect) U Marijuana (THC) Screen Not Detected (Not Detect) Ethyl Alcohol mg/dL Independent Interpretation I performed an independent interpretation of an: Plain X-Ray Interpretation: my independent interpretation patient's one-view chest x-ray is as follows: Hyperinflated lungs, no acute infiltrates Radiology Impression Discussion of test interpretation with radiology: I have reviewed the radiologist's reading. Radiologist Impression: XR chest 1V IMPRESSION: No films to compare. Mild bilateral basilar opacities may be areas of atelectasis or infiltrate versus chronic change. Follow-up films recommended to continue assessment. There is no failure or effusion. Dictated By: Bradley Eller MD CT head/brain wo IV con IMPRESSION: Mild cerebral volume loss and [id number] bilateral periventricular and central white matter diminished attenuation which is nonspecific but likely to represent microvascular disease. There is no acute intracranial abnormality. Sphenoid sinus opacity of uncertain acuity and current significance. Dictated By: Matthew Ortiz External Record Review External record reviewed: Outside ED record ( Physician note from patient's care facility) Chronic Conditions Patient?s care impacted by: Hypertension Discharge Plan Discharge Clinical Impression: Altered mental status Patient Disposition: [facility] LT Transfer Details: Pramod Guillory Additional Instructions: You did receive Haldol 2.5 mg IV and Ativan 0.5 mg IV in order to sedate you so that we could complete your evaluation. Your blood work was unremarkable. Urinalysis was negative for infection. Your urine tox screen was negative and alcohol levels were below detectable limits. The CT scan of your brain did not reveal any new findings to explain your change in mental status. Your chest x-ray was normal. Continue taking medications as prescribed by your providers. Follow-up with your doctor in 2 days. Please return to the emergency department if your symptoms get worse or if you develop any symptoms that are concerning to you.
[2023-01-08] VITALS: BP 95/61; PULSE 95; RESP 20; O2SAT 99
[2023-01-08 00:09] LABS: Ethanol < 10 mg/dL
[2023-01-08 00:13] LABS: OBS Int Ctl Valid YES; OBS1 NEGATIVE (NEGATIVE)
[2023-01-08 00:15] LABS: Appearance Urine Cloudy; Color Urine Yellow; Glucose Urine UA Negative (Negative); Leukocyte Esterase Urine Trace (Negative); Nitrite Urine Negative (Negative); PH 6.5 (5.0-9.0); Specific Gravity - Urine 1.015 (1.005-1.025); UMIC TRIGGER UACC YES; Urine Blood Negative (Negative); Urine Ketones Negative (Negative); Urine Protein 30 (1+) mg/dL (Neg-Trace)
[2023-01-08 00:20] LABS: Amphetamine Screen Urine Not Detected (Not Detect); Barbiturates, Urine Not Detected (Not Detect); Benzodiazepines Screen Urine Not Detected (Not Detect); Cannabinoid Screen Urine Not Detected (Not Detect); Cocaine Screen Urine Not Detected (Not Detect); Fentanyl, urine Not Detected (Not Detect); Opiate Screen Urine Not Detected (Not Detect); Phencyclidine Screen Urine Not Detected (Not Detect)
[2023-01-08] MEDS: Haloperidol Lactate 5 MG/ML VIAL 2.5 MG IVPUSH (00:25)
[2023-01-08 00:26] LABS: Bacteria Urine None Seen (None Seen); Calcium Oxalate Crystals Urine Present; WBC Urine 0-5 /HPF (0-5)
[2023-01-08] MEDS: LORazepam 2 MG/ML VIAL 0.5 MG IVPUSH (00:26)
[2023-01-08 02:00] VITALS: RESP 16
[2023-01-08 04:00] VITALS: BP 89/50; PULSE 102; RESP 20; O2SAT 97
[2023-01-08 05:59] VITALS: BP 96/51; PULSE 105; RESP 20; O2SAT 98
[2023-01-08 07:04] VITALS: BP 93/64; PULSE 106; RESP 15; O2SAT 100
[2023-01-08 08:17] VITALS: BP 115/71; PULSE 98; RESP 16; O2SAT 99
== END 2023-01-08 10:07 ==
PROVIDERS: Emergency Provider Emergency Medicine Emergency Medical Services
DX: F03.90 Unspecified dementia, unspecified severity, without behavioral disturbance, psychotic disturbance, mood disturbance, and anxiety (principal); G47.33 Obstructive sleep apnea (adult) (pediatric); R00.0 Tachycardia, unspecified; R41.82 Altered mental status, unspecified; I10 Essential (primary) hypertension; Z79.899 Other long term (current) drug therapy
CPT/HCPCS: 36415; 51701; 70450; 71045; 80048; 80076; 80307; 81001; 82272; 82550; 82803; 82947; 83735; 83880; 85025; 93005; 96374; 96375; 99285; J2060